=== PATIENT | female | born 1985 | race Caucasian/White ===

== ENCOUNTER 2023-06-22 07:33 | Emergency (ER) | payer MEDICAID ==
[~2023-06-22] VITALS: Ht 152.4 cm; Wt 49.1 kg
[2023-06-22 07:35] VITALS: BP 137/89; PULSE 58; RESP 16; TEMP 97.9
[2023-06-22] MEDS ORDERED: CEPH-558 PO (07:59)
[2023-06-22] MEDS ORDERED: PERTUSS(ACELL),DIPH,TET VAC/PF 0.5 ML SYRINGE IM. ONE (08:00)
== END 2023-06-22 08:43 | disposition home or self-care (01) ==
LOC: EMS 07:36
DX: S61.411A Laceration without foreign body of right hand, initial encounter (principal); W26.8XXA Contact with other sharp object(s), not elsewhere classified, initial encounter; Y93.89 Activity, other specified; Y92.89 Other specified places as the place of occurrence of the external cause; Y99.8 Other external cause status
CPT/HCPCS: 90471; 90715; 99283